=== PATIENT | female | born 1980 | race Caucasian/White ===

== ENCOUNTER 2021-06-14 22:54 | Emergency (ER) | payer OTHER ==
[2021-06-14 23:48] LABS: BASOPHIL 0.3 % (0-2); EOSINOPHIL 1.9 % (0-5); HCT 37.9 % (37.0-47.0); HGB 11.5 g/dl (12.5-16.0); LYMPHOCYTE 24.2 % (15-48); MCH 24.7 pg (25.0-31.0); MCHC 30.3 g/dL (32.0-36.0); MCV 81.3 fL (78.0-100.0); MONOCYTE 6.5 % (0-12); MPV 8.9 fL (6.0-9.5); NEUTROPHIL 66.7 % (41-80); NRBC 0; PLT 322 K/uL (150-400); RBC 4.66 M/uL (4.20-5.40); WBC 6.9 K/uL (4.0-10.5)
[2021-06-14 23:58] LABS: INR 0.99 (0.9-1.2); PROTHROMBIN TIME 12.5 SECONDS (11.8-13.4)
[2021-06-15 00:09] LABS: BUN/CREAT RATIO (CALC) 16.3 RATIO; CREATININE 0.86 mg/dL (0.51-0.95)
[2021-06-15 00:56] LABS: CORONAVIRUS 2019 SARS-COV-2 NEGATIVE (NEGATIVE); INFLUENZA A NAA NEGATIVE (NEGATIVE)
== END 2021-06-15 00:15 | disposition other institution (70) ==
LOC: FER 22:54
PROVIDERS: Internal Medicine
DX: R29.810 Facial weakness (principal); R47.9 Unspecified speech disturbances; R51.9 Headache, unspecified; Z20.822 Contact with and (suspected) exposure to COVID-19
CPT/HCPCS: 36415; 70450; 71045; 80048; 83735; 85025; 85610; 85730; J2550; U0002